=== PATIENT | male | born 1960 | race Two or more races ===

== ENCOUNTER 2020-08-09 07:14 | Emergency (ER) | payer OTHER, MEDICAID ==
[~2020-08-09] VITALS: Ht 170.2 cm; Wt 77.1 kg
[2020-08-09] MEDS ORDERED: methylPREDNISolone SOD SUCC 125 MG/2 ML VL IV ONE (07:45)
[2020-08-09 07:51] VITALS: BP 142/78
[2020-08-09 08:19] LABS: Basophils # (auto) 0 10 ^3/uL (0-0.2); Basophils % (auto) 0.4 % (0.0-2.0); Eosinophils # (auto) 0 10 ^3/uL (0-0.8); Eosinophils % (auto) 0.1 % (0.0-7.0); Hemoglobin 13.6 g/dL (13.5-17.5); Lymphocytes # (auto) 0.7 10 ^3/uL (0.4-5.4); Lymphocytes % (auto) 6.5 % (10.0-50.0); Mean Corpuscular Hgb Conc. 32.5 g/dL (32.0-36.0); Monocytes # (auto) 0.6 10 ^3/uL (0-1.3); Monocytes % (auto) 5.7 % (0.0-12.0); Neutrophils # (auto) 9.4 10 ^3/uL (1.6-8.6); Neutrophils % (auto) 87.3 % (37.0-80.0); Nucleated Red Blood Cells % 0.1 %; Platelet Count (auto) 260 10^3/uL (140-450); Red Blood Cells 4.71 10^6/uL (4.5-5.90); Red Cell Distribution Width 14.9 % (11.8-14.3); White Blood Cell 10.8 10^3/uL (4.4-10.8)
[2020-08-09 08:35] LABS: Lactic Acid w/Reflex 2.1 mmol/L (0.4-2.0)
[2020-08-09 09:07] LABS: Chloride 98 mmol/L (98-107); Potassium 4.7 mmol/L (3.5-5.1); Sodium 131 mmol/L (136-145)
[2020-08-09 09:08] LABS: Alanine Aminotransferase 61 U/L (16-61); Alkaline Phosphatase 373 U/L (45-117); Anion Gap 11 (5-15); Aspartate Aminotransferase 59 U/L (15-37); BUN/Creatinine Ratio 17.9; Bilirubin, Total 1.7 mg/dL (0.2-1.0); Blood Urea Nitrogen 27 mg/dL (7-18); Calcium 9.2 mg/dL (8.5-10.1); Carbon Dioxide 22 mmol/L (21-32); GFR African American 61 mL/min; GFR Non-African American 50 mL/min; Glucose 234 mg/dL (74-106); Total Protein 7.9 g/dL (6.4-8.2)
[2020-08-09 09:09] LABS: Albumin 3.3 g/dL (3.4-5.0)
== END 2020-08-09 13:57 | disposition left against medical advice (07) ==
LOC: EDBD 07:14 → ER 07:25
DX: R06.02 Shortness of breath (principal); I11.0 Hypertensive heart disease with heart failure; I50.9 Heart failure, unspecified; Z20.828 Contact with and (suspected) exposure to other viral communicable diseases; Z85.118 Personal history of other malignant neoplasm of bronchus and lung
CPT/HCPCS: 36415; 71045; 80053; 83605; 83880; 84484; 85025; 85379; 87040; 87426; 93005